=== PATIENT | female | born 1940 | race Caucasian/White ===

== ENCOUNTER 2016-04-29 12:32 | Emergency (ER) | payer OTHER ==
--- NOTE | ~2016-04-29 | CR106 ---
[facility]. [facility] A Service of [facility] & [facility] RADIOLOGY TEXT RESULTS PATIENT: HÉCTOR WESTON LOCATION: SED : 41 UNIT #: [id number] AGE: [address]: Puja Patterson APRN SEX: F ORDER DR: [id number] [place] [id number] E MR#: [id number] Acc #: [id number] NAME: HÉCTOR WESTON : 1940 SEX: F STUDY DATE/TIME: 04/29/2016 12:46 UNIT: SED ROOM: STUDY DESCRIPTION: CR Femur 2 Views Lt Attending Physician: Puja Patterson A.P.R.N. Ordering Physician: Puja Patterson A.P.R.N. Primary Care Physician: Tamie Browne M.D. MEDICAL IMAGING REPORT This report is preliminary unless electronic signature is present. EXAM Left femur series 04/29/2016. HISTORY 75-year-old female complaining of left lateral thigh pain beginning yesterday. History of ORIF of left hip fracture in 2012. TECHNIQUE AP and lateral radiographs of the left femur. FINDINGS No acute osseous abnormality is demonstrated. Gamma nail fixation hardware traversing old healed fracture deformities of the intertrochanteric left femur. Degenerative arthropathy is noted at the left knee. IMPRESSION 1. No acute osseous abnormality. 2. Previous ORIF of old healed intertrochanteric left femur fracture. Dictated by... Marino Andre M.D. THIS IS AN ELECTRONICALLY VERIFIED REPORT Marino Andre M.D. at 04/30/2016 5:55 AM LUIS/che TD: 04/29/2016 15:28 JOB #: [id number] MEDICAL IMAGING REPORT
--- NOTE | ~2016-04-29 | CR150 ---
[facility] A Service of [facility] RADIOLOGY TEXT RESULTS PATIENT: HÉCTOR WESTON LOCATION: SED : 41 UNIT #: [id number] AGE: [address]: Puja Patterson APRN SEX: F ORDER DR: [id number] [facility] [address]. [place], [place] [address] [id number] E MR#: [id number] Acc #: [id number] NAME: HÉCTOR WESTON : 1940 SEX: F STUDY DATE/TIME: 04/29/2016 12:46 UNIT: SED ROOM: STUDY DESCRIPTION: CR Hip Min 2 Views Lt Attending Physician: Puja Patterson A.P.R.N. Ordering Physician: Puja Patterson A.P.R.N. Primary Care Physician: Tamie Browne M.D. MEDICAL IMAGING REPORT This report is preliminary unless electronic signature is present EXAM Left hip series 04/29/2016 HISTORY See femur series, same date. TECHNIQUE Repeat radiograph of the pelvis and hips with left lateral hip image. FINDINGS No fracture or other acute osseous abnormality. Old healed fracture deformities of the intertrochanteric left femur and left inferior pubic ramus. Fixation hardware within the femur. IMPRESSION 1. No acute osseous abnormality. 2. Previous ORIF healed left intertrochanteric femur fracture. 3. Old healed fracture deformity of the left inferior pubic ramus. Dictated by... Marino Andre M.D. THIS IS AN ELECTRONICALLY VERIFIED REPORT Marino Andre M.D. at 04/30/2016 5:55 AM LUIS/che TD: 04/29/2016 15:31 JOB #: [id number] MEDICAL IMAGING REPORT [facility] A Service [facility] RADIOLOGY TEXT RESULTS PATIENT: HÉCTOR WESTON LOCATION: SED : 41 UNIT #: [id number] AGE: [address]: Puja Patterson APRN SEX: F ORDER DR: COPY
[~2016-04-29 12:32] MED LIST: ACETAMINOPHEN PO; ACETAMINOPHEN325 MG PO; ALDACTONE PO; AMARYL PO; AMIODARONE PO; ASPIRIN PO; ASPIRIN81 M2 PO; ATIVAN PO; ATIVAN0.5 M1 PO; ATIVAN0.5 MG PO; BENADRYL PO; BETAPACE PO; BUMETANIDE2 M1 PO; BUMEX PO; CEFDINIR300 M1 PO; CLOBETASOL 0.0560 GM TOP; CLOBETASOL PROP59 ML; COMBIVENT INH14.7 GM INH; COREG PO; COUMADIN PO; COUMADIN1 MG PO; DIGOXIN125 MCG PO; DIOVAN80 M1 PO; ECOTRIN81 M1 PO; ELIQUIS2.5 MG; EPIPEN0.3 MG/0.1 IM; GLUCOMETER ELIT1 KIT MC; IMDUR PO; IMDUR-ER30 M1 PO; IMDUR-ER30 MG PO; KCL PO; LANOXIN PO; LANTUS100 U/M1 SQ; LANTUS100 U/ML SUBQ; LASIX PO; LISINOPRIL PO; LOPRESSOR PO; MEDROL DOSEPAK4 MG PO; MEDROL4 MG/DOSE- PO; METFORMIN; MICRO-K10 MEQ PO; MOTRIN600 MG PO; PAROXETINE HCL40 M1 PO; PAXIL PO; PAXIL30 MG PO; PAXIL40 MG PO; PLAVIX PO; PREDNISONE PO; SIMVASTATIN40 MG PO; SINGULAIR PO; SPIRONOLACTONE50 MG PO; TEMOVATE EMOLLI30 GM TOP; VALTREX PO; WARFARIN SODIUM2 MG PO; ZANTAC150 M1 PO; ZANTAC150 MG PO; ZOCOR PO; ZYRTEC PO; ZYRTEC10 M2 PO
[2016-04-29] MEDS ORDERED: ALBUTEROL20 ml (12:42)
[2016-04-29] MEDS ORDERED: ZYRTEC10 M1 PO (12:43)
[2016-04-29] MEDS ORDERED: PACERONE PO (12:43)
[2016-04-29] MEDS ORDERED: LASIX20 MG PO (12:44)
[2016-04-29] MEDS ORDERED: TEMOVATE15 GM (12:44)
[2016-04-29] MEDS ORDERED: VITAMIN D35000 UNI1 PO (12:44)
[2016-04-29] MEDS ORDERED: IMDUR-ER30 M1 PO (12:45)
[2016-04-29] MEDS ORDERED: GLUCOPHAGE500 MG PO (12:45)
[2016-04-29] MEDS ORDERED: LOPRESSOR PO (12:45)
[2016-04-29] MEDS ORDERED: ATIVAN0.5 M1 PO (12:45)
[2016-04-29] MEDS ORDERED: SINGULAIR PO (12:46)
[2016-04-29] MEDS ORDERED: NITROSTAT0.4 MG SL (12:46)
[2016-04-29] MEDS ORDERED: ZANTAC150 M1 PO (12:46)
[2016-04-29] MEDS ORDERED: ZOCOR PO (12:46)
[2016-04-29] MEDS ORDERED: PAXIL30 MG PO (12:46)
[2016-04-29] MEDS ORDERED: XARELTO20 MG PO (12:47)
[2016-04-29] MEDS ORDERED: ALDACTONE PO (12:47)
[2016-04-29] MEDS ORDERED: DETROL LA PO (12:47)
[2016-05-10] MEDS ORDERED: AMIODARONE PO (11:45)
[2016-05-10] MEDS ORDERED: ALBUTEROL17 GM INH (11:52)
== END 2016-04-29 14:20 | disposition home or self-care (01) ==
LOC: SED 12:32
DX: M96.840 Postprocedural hematoma of a musculoskeletal structure following a musculoskeletal system procedure (principal); I10 Essential (primary) hypertension; E11.9 Type 2 diabetes mellitus without complications; F32.9 Major depressive disorder, single episode, unspecified; Z95.1 Presence of aortocoronary bypass graft; Z88.2 Allergy status to sulfonamides; Z88.1 Allergy status to other antibiotic agents; Z88.8 Allergy status to other drugs, medicaments and biological substances; Z79.84 Long term (current) use of oral hypoglycemic drugs; Z79.899 Other long term (current) drug therapy
CPT/HCPCS: 73502; 73552; 99284

== ENCOUNTER 2016-05-10 12:00 | Emergency (ER) | payer OTHER ==
--- NOTE | ~2016-05-10 | CT4 ---
[facility] A Service of [facility] & [facility] RADIOLOGY TEXT RESULTS PATIENT: HÉCTOR WESTON LOCATION: SED : 41 UNIT #: [id number] AGE: [address]: Erika Hilton MD SEX: F ORDER DR: [id number] [address] [address] [id number] E MR#: [id number] Acc #: [id number] NAME: HÉCTOR WESTON : 1940 SEX: F STUDY DATE/TIME: 05/10/2016 11:41 UNIT: SED ROOM: STUDY DESCRIPTION: CT Abd and Pelv Wo Cont Attending Physician: Erika Hilton M.D. Ordering Physician: Erika Hilton M.D. Primary Care Physician: Tamie Browne M.D. MEDICAL IMAGING REPORT This report is preliminary unless electronic signature is present. EXAM CT abdomen and pelvis without contrast. HISTORY Lower back pain after slipping and falling in the tub today. TECHNIQUE Axial CT images were obtained from the dome of the diaphragm through the symphysis pubis. No oral or intravenous contrast material was administered. Patient's CT of the chest will be dictated separately. This CT exam was performed with one or more of the following radiation dose reduction techniques: automatic exposure control, adjustment of mA and/or kV according to patient size, and iterative reconstruction. FINDINGS There is a small hiatal hernia. Spleen appears unremarkable. Proximal small bowel is within normal limits as are the adrenal glands and kidneys. Gallbladder is surgically absent. Liver is unremarkable. Pancreas is atrophic. Atherosclerotic involvement of the abdominal aorta which continues into the iliac vessels. There is colonic diverticulosis without any evidence of diverticulitis. Patient does have fairly extensive fecal burden seen throughout colon and correlation with history of constipation is recommended. This patient does have thoracolumbar scoliosis. No aggressive osseous abnormalities are seen. There are postoperative changes seen within the left hip. Patient has an old left inferior pubic ramus fracture. There is some mild soft tissue stranding seen overlying the left paraspinous musculature likely reflecting some contusion but again no underlying fracture is seen. IMPRESSION 1. No acute traumatic injury identified. 2. Colonic diverticulosis without evidence of diverticulitis. [facility]. [facility] A Service of [facility] & [facility] RADIOLOGY TEXT RESULTS PATIENT: HÉCTOR WESTON LOCATION: SED : 41 UNIT #: [id number] AGE: [address]: Erika Hilton MD SEX: F ORDER DR: 3. Extensive fecal burden noted throughout the colon, correlation with any history of constipation is recommended. 4. Please see the body of the report for any other additional incidental findings. Dictated by... Madyson Laird M.D. THIS IS AN ELECTRONICALLY VERIFIED REPORT Madyson Laird M.D. at 05/10/2016 5:20 PM AFF/dj TD: 05/10/2016 14:59 JOB #: [id number] MEDICAL IMAGING REPORT
--- NOTE | ~2016-05-10 | CT71 ---
[facility] A Service of [facility] RADIOLOGY TEXT RESULTS PATIENT: HÉCTOR WESTON LOCATION: SED : 41 UNIT #: [id number] AGE: [address]: Erika Hilton MD SEX: F ORDER DR: [id number] [place] [id number] E MR#: [id number] Acc #: [id number] NAME: HÉCTOR WESTON : 1940 SEX: F STUDY DATE/TIME: 05/10/2016 12:34 UNIT: SED ROOM: STUDY DESCRIPTION: CT Head Wo Contrast Attending Physician: Erika Hilton M.D. Ordering Physician: Erika Hilton M.D. Primary Care Physician: Tamie Browne M.D. MEDICAL IMAGING REPORT This report is preliminary unless electronic signature is present. EXAM CT head without contrast INDICATIONS Left-sided headache after the patient slipped and fell in the tub tis morning. TECHNIQUE Axial CT images were obtained from vertex to skull through skull bas. No intravenous contrast was administered. The CT exam was performed with one or more of the following radiation dose reduction techniques: automatic exposure control, adjustment of mA and/or kV according to patient size, and iterative reconstruction. FINDINGS No acute intracranial hemorrhage is identified. There is diffuse cerebral atrophy with compensatory ventricular dilatation which is in keeping with the age of 75. There is no midline shift or mass effect. No focal areas of decreased attenuation are seen. 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 No calvarial fracture is seen. Visualized paranasal sinuses and mastoid air cells appear clear. There is dense atherosclerotic involvement of the cavernous carotid arteries. No focal soft tissue abnormalities are seen. IMPRESSION No acute intracranial process is identified. Specifically there is no evidence of acute hemorrhage, mass lesion or acute infarct. Patient is [facility] A Service [facility] RADIOLOGY TEXT RESULTS PATIENT: HÉCTOR WESTON LOCATION: SED : 41 UNIT #: [id number] AGE: [address]: Erika Hilton MD SEX: F ORDER DR: noted to have some cerebral atrophy, as well as some microangiopathic disease. Dictated by... Madyson Laird M.D. THIS IS AN ELECTRONICALLY VERIFIED REPORT Madyson Laird M.D. at 05/10/2016 5:21 PM AFF/kedar TD: 05/10/2016 14:58 JOB #: [id number] MEDICAL IMAGING REPORT
--- NOTE | ~2016-05-10 | CT52 ---
[facility] A Service of [facility] & [facility] RADIOLOGY TEXT RESULTS PATIENT: HÉCTOR WESTON LOCATION: SED : 41 UNIT #: [id number] AGE: [address]: Erika Hilton MD SEX: F ORDER DR: [id number] [address] [address] [id number] E MR#: [id number] Acc #: [id number] NAME: HÉCTOR WESTON : 1940 SEX: F STUDY DATE/TIME: 05/10/2016 12:37 UNIT: SED ROOM: STUDY DESCRIPTION: CT Cervical Spine Wo Cont Attending Physician: Erika Hilton M.D. Ordering Physician: Erika Hilton M.D. Primary Care Physician: Tamie Browne M.D. MEDICAL IMAGING REPORT This report is preliminary unless electronic signature is present. EXAM CT cervical spine 05/10/2016 HISTORY 75-year-old female in the ED complaining of neck pain, left arm pain and left hip pain after injury. Slipped and fell in bathtub earlier this morning. TECHNIQUE Thin-section axial CT images were obtained from the skull base through the lower portion of T4. Sagittal and coronal images were reconstructed. FINDINGS No fracture or other acute osseous abnormality is demonstrated. Cervical disc spaces and cervical vertebral alignment are within normal limits. IMPRESSION Negative CT examination of the cervical spine. No acute osseous abnormality. Dictated by... Marino Andre M.D. THIS IS AN ELECTRONICALLY VERIFIED REPORT Marino Andre M.D. at 05/10/2016 4:12 PM LUIS/jayde TD: 05/10/2016 14:55 JOB #: [id number] MEDICAL IMAGING REPORT
--- NOTE | ~2016-05-10 | CR90 ---
[facility]. [facility] A Service of [facility] & [facility] RADIOLOGY TEXT RESULTS PATIENT: HÉCTOR WESTON LOCATION: SED : 41 UNIT #: [id number] AGE: [address]: Erika Hilton MD SEX: F ORDER DR: [id number] [address] [address] [id number] E MR#: [id number] Acc #: [id number] NAME: HÉCTOR WESTON : 1940 SEX: F STUDY DATE/TIME: 05/10/2016 12:36 UNIT: SED ROOM: STUDY DESCRIPTION: CR Elbow 2 View Lt Attending Physician: Erika Hilton M.D. Ordering Physician: Erika Hilton M.D. Primary Care Physician: Tamie Browne M.D. MEDICAL IMAGING REPORT This report is preliminary unless electronic signature is present. EXAM Left elbow 05/10/2016 HISTORY 75-year-old female in the ED with left elbow pain after injury. Slipped and fell in bathtub earlier today. TECHNIQUE Two-view left elbow series. FINDINGS No acute fracture or dislocation is demonstrated. Advanced degenerative arthropathy is noted, including joint space narrowing and periarticular osteophyte formation. IMPRESSION No acute osseous abnormality. Severe degenerative arthropathy. Dictated by... Marino Andre M.D. THIS IS AN ELECTRONICALLY VERIFIED REPORT Marino Andre M.D. at 05/10/2016 4:13 PM LUIS/pallavi TD: 05/10/2016 15:10 JOB #: [id number] MEDICAL IMAGING REPORT
--- NOTE | ~2016-05-10 | CT57 ---
[facility] A Service of [facility] & [facility] RADIOLOGY TEXT RESULTS PATIENT: HÉCTOR WESTON LOCATION: SED : 41 UNIT #: [id number] AGE: [address]: Erika Hilton MD SEX: F ORDER DR: [id number] [address] [address] [id number] E MR#: [id number] Acc #: [id number] NAME: HÉCTOR WESTON : 1940 SEX: F STUDY DATE/TIME: 05/10/2016 UNIT: SED ROOM: STUDY DESCRIPTION: CT Chest Wo Cont Attending Physician: Erika Hilton M.D. Ordering Physician: Erika Hilton M.D. Primary Care Physician: Tamie Browne M.D. MEDICAL IMAGING REPORT This report is preliminary unless electronic signature is present. EXAM CT chest, without contrast, 05/10/2016. HISTORY Patient slipped and fell in the tub this morning, complaining of back pain, neck pain, chest, and left arm pain since fall. COMPARISON STUDIES Chest CT, 02/16/2008. TECHNIQUE Helical noncontrasted images were obtained from the thoracic inlet through the adrenal glands. Sagittal and coronal reconstructions were performed. Total exam DLP for the chest exam is 558 mGy-cm. This CT exam was performed with one or more of the following radiation dose reduction techniques: automatic exposure control, adjustment of mA and/or kV according to patient size, and iterative reconstruction. FINDINGS Images through the thoracic inlet demonstrate no thyroid mass or adenopathy. Images through the chest demonstrate prior median sternotomy change with well-healed sternotomy site. 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 The pulmonary arteries are enlarged with main pulmonary artery measuring 4.1 cm, previously 3.4 cm. Right pulmonary artery measures 2.6 cm, previously 2.2 cm. Left pulmonary artery measures 2.7 cm, previously 2.6 cm. These enlarged pulmonary arteries can be associated with pulmonary arterial hypertension. There are coarse coronary calcifications. Postop changes are noted at the mitral and tricuspid valves. There is no pericardial or pleural fluid. There is an azygos fissure, which is an anatomic variant. [facility]. [facility] A Service of [facility] & [facility] RADIOLOGY TEXT RESULTS PATIENT: HÉCTOR WESTON LOCATION: [facility] : 41 UNIT #: [id number] AGE: [address]: Erika Hilton MD SEX: F ORDER DR: The lungs demonstrate benign calcified granulomata. There is no acute pulmonary density or pleural effusion. Bone window images demonstrate well-healed median sternotomy with sternal wires present. There is multilevel degenerative change in the thoracic spine with exaggerated kyphosis, but no definite compression fracture. No rib fracture is seen. IMPRESSION 1. No acute posttraumatic changes in the chest. 2. Median sternotomy change with sternum intact. 3. 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 4. Large main, right, and left pulmonary arteries, increased from 2008. This can be associated with pulmonary arterial hypertension. 5. There is no pericardial or pleural fluid. No pneumothorax. 6. No acute pulmonary densities. STAT * RESULT Dictated by... Chayo Mcintosh M.D. THIS IS AN ELECTRONICALLY VERIFIED REPORT Chayo Mcintosh M.D. at 05/10/2016 2:28 PM CHANA/collin TD: 05/10/2016 13:16 JOB #: [id number] MEDICAL IMAGING REPORT
[~2016-05-10 12:00] MED LIST changes: +ALBUTEROL17 GM INH; +ALBUTEROL20 ml; +DETROL LA PO; +GLUCOPHAGE500 MG PO; +LASIX20 MG PO; +NITROSTAT0.4 MG SL; +PACERONE PO; +TEMOVATE15 GM; +VITAMIN D35000 UNI1 PO; +XARELTO20 MG PO; +ZYRTEC10 M1 PO
== END 2016-05-10 13:56 | disposition home or self-care (01) ==
LOC: SED 12:00
DX: S13.9XXA Sprain of joints and ligaments of unspecified parts of neck, initial encounter (principal); S70.02XA Contusion of left hip, initial encounter; I10 Essential (primary) hypertension; I48.91 Unspecified atrial fibrillation; Z88.8 Allergy status to other drugs, medicaments and biological substances; Z88.2 Allergy status to sulfonamides; Z91.010 Allergy to peanuts; W01.0XXA Fall on same level from slipping, tripping and stumbling without subsequent striking against object, initial encounter; Y92.129 Unspecified place in nursing home as the place of occurrence of the external cause
CPT/HCPCS: 70450; 71250; 72125; 73070; 74176; 99284

== ENCOUNTER 2016-09-16 19:13 | Emergency (ER) | payer OTHER ==
[~2016-09-16] VITALS: Ht 167.6 cm; Wt 72.6 kg
--- NOTE | ~2016-09-16 | CT52 ---
[facility] A Service [facility] RADIOLOGY TEXT RESULTS PATIENT: HÉCTOR WESTON LOCATION: SED : 41 UNIT #: [id number] AGE: [address]: Fredrick Hernandez MD SEX: F ORDER DR: [id number] [place] [id number] E MR#: [id number] Acc #: [id number] NAME: HÉCTOR WESTON : 1940 SEX: F STUDY DATE/TIME: 09/16/2016 19:47 UNIT: SED ROOM: STUDY DESCRIPTION: CT Cervical Spine Wo Cont Attending Physician: Fredrick Hernandez M.D. Ordering Physician: Fredrick Hernandez M.D. Primary Care Physician: Tamie Browne M.D. MEDICAL IMAGING REPORT This report is preliminary unless electronic signature is present. EXAM CT cervical spine without contrast. HISTORY Neck pain after fall today. Injury. TECHNIQUE This CT exam was performed with one or more of the following radiation dose reduction techniques: automatic exposure control, adjustment of mA and/or kV according to patient size, and iterative reconstruction. FINDINGS CT cervical spine without contrast demonstrates satisfactory cervical alignment. No fracture or disc space narrowing or subluxation. Mild multilevel facet hypertrophy and mild degenerative changes at the anterior junction of C1-C2. IMPRESSION No acute findings. No fracture. Dictated by... Manuel Self M.D. THIS IS AN ELECTRONICALLY VERIFIED REPORT Manuel Self M.D. at 09/17/2016 6:09 PM NUZHAT/dane TD: 09/17/2016 00:49 JOB #: [id number] [facility] A Service [facility] RADIOLOGY TEXT RESULTS PATIENT: HÉCTOR WESTON LOCATION: SED : 41 UNIT #: [id number] AGE: [address]: Fredrick Hernandez MD SEX: F ORDER DR: MEDICAL IMAGING REPORT Page 1 of 1
--- NOTE | ~2016-09-16 | CT71 ---
[facility] A Service [facility] RADIOLOGY TEXT RESULTS PATIENT: HÉCTOR WESTON LOCATION: SED : 41 UNIT #: [id number] AGE: [address]: Fredrick Hernandez MD SEX: F ORDER DR: [id number] [place] [id number] E MR#: [id number] Acc #: [id number] NAME: HÉCTOR WESTON : 1940 SEX: F STUDY DATE/TIME: 09/16/2016 19:34 UNIT: SED ROOM: STUDY DESCRIPTION: CT Head Wo Contrast Attending Physician: Fredrick Hernandze M.D. Ordering Physician: Fredrick Hernandez M.D. Primary Care Physician: Tamie Browne M.D. MEDICAL IMAGING REPORT This report is preliminary unless electronic signature is present. EXAM CT of the brain without contrast. HISTORY Fell and hit head today. Headache. TECHNIQUE This CT exam was performed with one or more of the following radiation dose reduction techniques: automatic exposure control, adjustment of mA and/or kV according to patient size, and iterative reconstruction. FINDINGS CT brain without contrast demonstrates no intracranial hemorrhage, mass or edema. No midline shift or ventricular dilatation or extraaxial fluid collection. Minimal chronic ischemic changes in the periventricular white matter bilaterally. IMPRESSION No acute findings. Dictated by... Manuel Self M.D. THIS IS AN ELECTRONICALLY VERIFIED REPORT Manuel Self M.D. at 09/17/2016 6:09 PM NUZHAT/dane TD: 09/17/2016 00:48 JOB #: [id number] MEDICAL IMAGING REPORT [facility] A Service [facility] RADIOLOGY TEXT RESULTS PATIENT: HÉCTOR WESTON LOCATION: SED : 41 UNIT #: [id number] AGE: [address]: Fredrick Hernandez MD SEX: F ORDER DR: Page 1 of 1
--- NOTE | ~2016-09-16 | CR93 ---
[facility] A Service of [facility] RADIOLOGY TEXT RESULTS PATIENT: HÉCTOR WESTON LOCATION: SED : 41 UNIT #: [id number] AGE: [address]: Fredrick Hernandez MD SEX: F ORDER DR: [id number] [address] [address] [id number] E MR#: [id number] Acc #: [id number] NAME: HÉCTOR WESTON : 1940 SEX: F STUDY DATE/TIME: 09/16/2016 19:51 UNIT: SED ROOM: STUDY DESCRIPTION: CR Elbow Min 3 Views Lt Attending Physician: Fredrick Hernandez M.D. Ordering Physician: Fredrick Hernandez M.D. Primary Care Physician: Tamie Browne M.D. MEDICAL IMAGING REPORT This report is preliminary unless electronic signature is present. EXAM Left elbow, 3 views COMPARISON May 10, 2016 INDICATIONS 76-year-old female with left elbow pain after tripping over a curb and falling today. FINDINGS Chronic ossicle is seen at the coronoid process of the ulna elbow is anatomically aligned. There are large chronic appearing calcium densities seen at the olecranon. Acute fracture cannot be excluded given the appearance and the findings could reflect fracture of an enthesophyte, not well characterized on the AP view. There is stable osteophyte formation at the radial head and at the margin of the ulna trochlear articulation. Bones are anatomically aligned. IMPRESSION Questionable fracture at the olecranon possibly through a preexisting enthesophyte. Correlation with site of pain is recommended. CT may be helpful for further characterization. Otherwise there appear to be stable degenerative changes at the elbow without dislocation. There also appears to be soft tissue swelling near the olecranon, secondary finding suggesting an acute fracture. Dictated by... Raheem Reno M.D. THIS IS AN ELECTRONICALLY VERIFIED REPORT [facility] A Service [facility] RADIOLOGY TEXT RESULTS PATIENT: HÉCTOR WESTON LOCATION: SED : 41 UNIT #: [id number] AGE: [address]: Fredrick Hernandez MD SEX: F ORDER DR: Raheem Reno M.D. at 09/23/2016 8:19 PM LUCIA/rnethel TD: 09/17/2016 01:27 JOB #: [id number] MEDICAL IMAGING REPORT Page 1 of 1
[2016-09-16] MEDS ORDERED: BUMEX2 MG PO (19:30)
[2016-09-16] MEDS ORDERED: KLOR-CON PO (19:30)
[2016-09-16] MEDS ORDERED: PACERONE100 MG PO (19:31)
== END 2016-09-16 22:06 | disposition home or self-care (01) ==
LOC: SED 19:13
DX: S09.90XA Unspecified injury of head, initial encounter (principal); S50.02XA Contusion of left elbow, initial encounter; E11.9 Type 2 diabetes mellitus without complications; I10 Essential (primary) hypertension; W01.0XXA Fall on same level from slipping, tripping and stumbling without subsequent striking against object, initial encounter; Y92.009 Unspecified place in unspecified non-institutional (private) residence as the place of occurrence of the external cause; Z88.2 Allergy status to sulfonamides; Z88.1 Allergy status to other antibiotic agents; Z88.8 Allergy status to other drugs, medicaments and biological substances; Z91.018 Allergy to other foods; Z23 Encounter for immunization
CPT/HCPCS: 70450; 72125; 73080; 90471; 90715; 99284